=== PATIENT | male | born 1995 | race Caucasian/White ===

== ENCOUNTER 2019-10-06 12:57 | Emergency (ER) | payer BC ==
[2019-10-06] MEDS ORDERED: ACET/COD 300 MG/30 MG STARTER PACK 6 TAB BTL PO STA (13:29)
--- NOTE | 2019-10-06 13:30 | ED ---
ENT HPI - General Chief complaint: Dental/Oral Stated complaint: tooth pain, facial swelling Time Seen by Provider: 10/06/19 13:13 Source: patient Mode of arrival: ambulatory Limitations: no limitations - History of Present Illness Initial comments: 24-year-old male presented for dental pain 24 hours patient states yesterday morning woke up with dental pain he states that he went to his dentist as prescribed Augmentin. Patient states that he had woken up this morning with some slight left-sided facial swelling he called his dentist who told him to come to the emergency department for evaluation. Patient denies a splint. The tongue swelling of the neck difficult to breathing. Patient denies any fever neck pain or general malaise. Patient has no additional complaints he states his pain at the tooth. Remaining review of system negative. Patient states she has taken a total of 2 doses of the Augmentin - Related Data Previous Rx's Medication Instructions Recorded Clindamycin [Cleocin] 450 mg PO Q8H 7 Days #63 capsule 10/06/19 Allergies Allergy/AdvReac Type Severity Reaction Status Date / Time No Known Allergies Allergy Verified 10/06/19 13:12 Review of Systems ROS Statement: Those systems with pertinent positive or pertinent negative responses have been documented in the HPI. ROS Other: All systems not noted in ROS Statement are negative. Past Medical History Past Medical History: No Reported History History of Any Multi-Drug Resistant Organisms: None Reported Past Surgical History: Hernia Repair, Orthopedic Surgery Past Psychological History: ADD/ADHD Smoking Status: Vaper Past Alcohol Use History: None Reported Past Drug Use History: Marijuana General Exam - General Exam Comments Initial Comments: General: The patient is awake and alert, in no distress Eye: Pupils are equal, round and reactive to light, extra-ocular movements are intact. No nystagmus. There is normal conjunctiva bilaterally. No signs of icterus. Ears, nose, mouth and throat: There are moist mucous membranes and no oral lesions. Tender to percussion of tooth #15, there is adjacent area of fluctuance no spontaneous drainage noted. No swelling below the tongue or below the angle of the mandible. Very mild left sided cheek swelling Musculoskeletal: Normal ROM, no tenderness. Strength 5/5. Sensation intact. Pulses equal bilaterally 2+. Neurological: A&O x 3. CN II-XII intact grossly, There are no obvious motor or sensory deficits. Coordination appears grossly intact. Speech is normal. Skin: Skin is warm and dry and no rashes or lesions are noted. Psychiatric: Cooperative, appropriate mood & affect, normal judgment. Limitations: no limitations Course Vital Signs 10/06/19 13:09 Temperature 98.6 F Pulse Rate 83 Respiratory 20 Rate Blood Pressure 117/74 O2 Sat by Pulse 98 Oximetry Medical Decision Making - Medical Decision Making 24yo presenting with dental pain. abscess, needle aspirated after receiving verbal consent. Patient has only take 2 doses of augment recommend taking augmentin for 1 more day if no improvement he is to return to ER or begin clindamycin prescription. Patient is to f/u with dentist in next 24-48 hours. Return parameters were discussed the patient was discharged appearing well. Disposition Clinical Impression: Pain, dental, Dental abscess Disposition: HOME SELF-CARE Condition: Good Instructions (If sedation given, give patient instructions): Dental Abscess (ED), Abscess Incision and Drainage (ED) Additional Instructions: Please use medication as discussed. Please follow-up with dentist in next 1-2 days for follow-up. Please return to emergency room if the symptoms increase or worsen or for any other concerns. Prescriptions: Clindamycin [Cleocin] 450 mg PO Q8H 7 Days #63 capsule Is patient prescribed a controlled substance at d/c from ED?: No Referrals: Judy Sepulveda DO [Primary Care Provider] - 1-2 days Time of Disposition: 13:30
[2019-10-06 13:48] VITALS: BP 115/68; PULSE 73; RESP 18; TEMP 98.7
== END 2019-10-06 13:53 | disposition home or self-care (01) ==
LOC: EC 12:57
DX: K04.7 Periapical abscess without sinus (principal); F17.290 Nicotine dependence, other tobacco product, uncomplicated
CPT/HCPCS: 99283